=== PATIENT | male | born 1995 | race Caucasian/White ===

== ENCOUNTER 2022-12-28 19:35 | Emergency (ER) | payer BC ==
[~2022-12-28] VITALS: Ht 185.4 cm; Wt 172.4 kg
[2022-12-28] MEDS ORDERED: ADVAIR 250-501 EACH INH (19:50)
[2022-12-28] MEDS ORDERED: VENTOLIN HFA18 GM INH (21:53)
--- NOTE | 2022-12-31 16:11 | EKG ---
[facility] [address] [facility] [place] [address] Signed Normal sinus rhythm Right axis deviation Abnormal ECG No previous ECGs available Confirmed by SHARAD MARCH MD ([id number]) on 12/31/2022 4:10:56 PM Electronically Signed By: SHARAD MARCH MD 12/31/22 1611 PATIENT NAME: KADE PACKER Electrocardiogram DATE OF : [birth year] PHYSICIAN: SHARAD MARCH MD REPORT #: [id number] REPORT IS CONFIDENTIAL AND NOT TO BE RELEASED WITHOUT AUTHORIZATION
== END 2022-12-28 22:11 | disposition home or self-care (01) ==
LOC: ED 19:35
DX: U07.1 COVID-19 (principal); J45.909 Unspecified asthma, uncomplicated; Z79.899 Other long term (current) drug therapy
CPT/HCPCS: 71045; 87502; 93005; 93010; 99284-25; C9803; U0003